=== PATIENT | male | born 1995 | race Caucasian/White ===

== ENCOUNTER → 2023-02-26 | Day surgery (SDC) | payer OTHER ==
[~2023-02-26] MED LIST: CEFAZOLIN SODIUM 1 GM/VIAL ONE; FENTANYL CITR 100 MCG/2 ML ONE; HYDROCODONE/APAP 7.5/325 MG TAB ONE; KETOROLAC 30 MG/ML INJ ONE; LIDOCAINE 2% MPF 5 ML VIAL ONE; MEPERIDINE HCL 25 MG/ML SYR ONE; MIDAZOLAM HCL 2 MG/2 ML INJ ONE; Mastisol Adhesive Liq ONE; ONDANSETRON 4 MG/2 ML VIAL ONE; ROCURONIUM 50 MG/5 ML VIAL IV ONE; Ringers Lactate 1,000 ML IV ONE; propofoL 200 MG/20 ML VIAL IV ONE
[2023-02-26] MEDS: LIDOCAINE HCL/EPINEPHRINE 20 ML MDV ONE ×2 (08:34→08:48)
[2023-02-26] MEDS: MORPHINE 4 MG/ML SYR ONE ×2 (10:13→10:19)
[2023-02-26 10:41] VITALS: O2SAT 98
[2023-02-26 12:01] VITALS: TEMP 97.4
[2023-02-26 12:02] VITALS: BP 112/80
--- NOTE | 2023-02-27 21:01 | OP ---
Date of Procedure: 02/26/2023 Surgeon: RUBÉN AMOS Preoperative Diagnosis: Left submandibular gland sialadenitis. Postoperative Diagnosis: Left submandibular gland sialadenitis. Procedure: Excision of left submandibular gland under general anesthesia. Anesthesia: General endotracheal anesthesia was administered. I also infiltrated approximately 10 m L of 1% lidocaine with 1:100,000 epinephrine at the left neck incision site. Estimated Blood Loss: Scant, less than 1 mL. Specimens: Left submandibular gland removed in total and submitted to Pathology for evaluation. Findings: Enlarged asymmetric left submandibular gland with no palpable stones or evidence of neopla stic disease. Complications: None. Disposition: Stable. The patient tolerated the procedure well. Indications For Procedure: The patient is a pleasant 27-year-old male who presented to my outpatient clinic with enlarging left submandibular gland causing significant discomfort most noticeably upon d eglutition. Patient believes that the gland has enlarged gradually over time. CT scan did show asym metry of the left submandibular gland with regard to shape and size as compared to the right side. T hese were indications to bring the patient to operative suite for the above-mentioned procedure. He understood. All questions were answered. Risks versus benefits and complications were explained in detail and a consent form was signed which was placed in the chart. Description Of Procedure: Patient was transferred from the preoperative holding area to the operativ e suite by Department of Anesthesia, placed on the operating table supine, sedated and intubated in n ormal fashion. Approximately 10 mL of 1% lidocaine with 1:100,000 epinephrine was infiltrated at the upper left neck incision site and the patient was sterilely prepped and draped. An incision was made well approximately 2 cm below the left mandibular border. The incision was hori zontal and made with a #15 Bard-Caden scalpel. The incision was made through the epidermis down to the platysmal layer. Hemostasis was achieved with needlepoint electrocautery on a setting of 20 for coagulation. Once down to the level of platysma, the platysma was divided with monopolar electrocaut madelaine and then we entered the submandibular triangle with the fascia tightly adhered to the lateral por tion of the gland. With hemostats DeBakey and LigaSure starting first at the inferior border and the n dissecting up over the gland to the anterior superior and posterior borders. The facial vein was c lamped and divided with the LigaSure and several smaller vessels were also divided in this manner. T he gland was certainly asymmetrical with an extra lobe extending inferiorly, which is probably where the patient felt the most discomfort. The gland was completely dissected utilizing the LigaSure and [place]'s duct was clamped and divided with the LigaSure before releasing the gland from the neck. S arnie irrigation was introduced into the wound cavity and removed with suction Bovie. All areas were checked for hemostasis and hemostasis was achieved. The platysma and subcutaneous layers were reapp roximated with 3-0 Vicryl in a simple interrupted fashion and then the epidermis and dermal layer wer e reapproximated in a continuous subcuticular fashion. A wound dressing was placed and he tolerated the procedure well. At this point, he was transferred back to Department of Anesthesia in stable condition and then he wa s transferred to postoperative care unit in stable condition. He will be discharged home on topical and oral antibiotics as well as p.r.n. narcotic pain medicine and will follow up in 1 week or sooner if n eeded. NIKOLAS/TERRANCE Voice ID: [id number] Report ID: [id number]
== END ==
LOC: OR 07:27
PROVIDERS: ATTEND Otolaryngology Facial Plastic Surgery
PROC: 0CBH0ZZ Excision of Left Submaxillary Gland, Open Approach (ICD-10-PCS; principal; 2023-02-26 08:30)
DX: K11.23 Chronic sialoadenitis (principal)
CPT/HCPCS: 88307; 42440; J2704; J2001; J2250; J3010 ×2; J2175; J2405; J7120 ×2; J0690